=== PATIENT | female | born 1935 | race Caucasian/White ===

== ENCOUNTER 2016-04-15 07:30 | Day surgery (SDC) | payer MEDICARE, OTHER ==
--- NOTE | ~2016-04-15 | EGD ---
EGD REPORT [facility] [address] 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 Estimated blood loss: None. Procedure: Pre-Anesthesia Assessment: - ASA Grade Assessment: II - A patient with mild systemic disease. After obtaining informed consent, the endoscope was passed under direct vision. Throughout the procedure, the patient's blood pressure, pulse, and oxygen saturations were monitored continuously. The GIF [id number] was introduced through the mouth, and advanced to the second part of duodenum. The upper GI endoscopy was accomplished with ease. The patient tolerated the procedure well. Findings: The examined esophagus was normal. The Z-line was found 40 cm from the incisors. Small scars were found in the gastric antrum. There is no endoscopic evidence of ulceration in the entire examined stomach. The duodenal bulb and 2nd part of the duodenum were normal. Impression: - Normal esophagus. - Z-line 40 cm from the incisors. - Scar in the gastric antrum. - Normal duodenal bulb and 2nd part of the duodenum. Recommendation: - Patient has a contact number available for emergencies. The signs and symptoms of potential delayed complications were discussed with the patient. Return to normal activities tomorrow. Written discharge instructions were provided to the patient. - Regular diet. - Discharge patient to home (with escort). - Continue present medications. - Return to GI clinic in 4 weeks. EGD REPORT [address] [place]. [address] NAME: EMILY SÁNCHEZ : [birth year] STATUS : REG [facility] PAT#: [id number] AGE: 81 ADM/REG DATE : 04/15/16 MR#: [id number] REPORT SERV DATE: 04/15/16 DICTATED BY: JOSE GAFFNEY DATE: 04/15/16 REPORT STATUS : Draft TRANSCRIBED BY: [employer] DATE: 04/15/16 Procedure Code(s): --- Professional --- 75966, Esophagogastroduodenoscopy, flexible, transoral; diagnostic, including collection of specimen(s) by brushing or washing, when performed (separate procedure) Diagnosis Code(s): --- Professional --- K31.89, Other diseases of stomach and duodenum K25.4, Chronic or unspecified gastric ulcer with hemorrhage CPT copyright 2013 [employer]. All rights reserved. The codes documented in this report are preliminary and upon tdp displays analyst review may be revised to meet current compliance requirements. JOSE GAFFNEY, 04/15/2016 9:24 AM This report has been signed electronically. Number of Addenda: 0 Note Initiated On: 04/15/2016 8:48 AM Scope Withdrawal Time 0 hours 0 minutes 0 seconds [address] [place] [address]
[~2016-04-15 07:30] MED LIST: AFRIN15 NAS; BEN25 PO; CALTRA600D PO; EXCEDRIN EXTRA1 EACH PO; FISH OIL1200 MG PO; HYDROCHLOROTHIAZIDE PO; IRBESARTAN PO; IRBESARTAN-HCTZ PO; LEXAPRO10 PO; MULTIVIT/MIN PO; NASACORTAQ NAS; NORV5 PO; OTC NASAL SPRAY NAS; PROTONIX PO; TRAZ100 PO; ULTRAM50 PO; ZOCOR40 PO; [UNRECOGNIZED DRUG - OTHER] PO
== END 2016-04-15 23:59 | disposition home or self-care (01) ==
LOC: DMU 07:30
DX: K25.4 Chronic or unspecified gastric ulcer with hemorrhage (principal); I10 Essential (primary) hypertension; K21.9 Gastro-esophageal reflux disease without esophagitis; G43.909 Migraine, unspecified, not intractable, without status migrainosus; M19.90 Unspecified osteoarthritis, unspecified site; F41.9 Anxiety disorder, unspecified; F32.9 Major depressive disorder, single episode, unspecified; Z98.890 Other specified postprocedural states